=== PATIENT | male | born 1950 | race Caucasian/White ===

== ENCOUNTER 2017-06-20 05:30 | Day surgery (SDC) | payer MEDICAID ==
[~2017-06-20] VITALS: Ht 175.3 cm; Wt 92.5 kg
[2017-06-20 06:35] LABS: CALCIUM 8.5 mg/dL (8.4-11.0); CREATININE 0.74 mg/dL (0.55-1.30); POTASSIUM 3.9 mmol/L (3.5-5.1)
[2017-06-20 06:40] LABS: ALBUMIN 3.4 g/dL (3.4-4.8); TOTAL BILIRUBIN 0.5 mg/dL (0.0-1.0)
[2017-06-20] MEDS ORDERED: CLINDAMYCIN 600 mg/50mL D5W 50 ML IV ONE (07:00)
[2017-06-20] MEDS ORDERED: MORPHINE 4 MG/ML INJ. SYRINGE IVP PRN (11:30)
[2017-06-20] MEDS ORDERED: fentaNYL CITRATE/PF 100 MCG/2 ML AMP IVP PRN (11:30)
[2017-06-20] MEDS ORDERED: MEPERIDINE HCL/PF 25 MG/ML DISP.SYRIN IVP PRN (11:30)
[2017-06-20] MEDS ORDERED: NALOXONE HCL 0.4 MG/ML AMP (NARCAN) IVP ONE (11:30)
[2017-06-20] MEDS ORDERED: MIDAZOLAM HCL 5 MG/5 ML VIAL IVP PRN (11:30)
[2017-06-20] MEDS ORDERED: ONDANSETRON HCL 4 MG/2 ML VIAL IVP ONE ×2 (11:30→11:53)
[2017-06-20] MEDS ORDERED: MIDAZOLAM HCL 5 MG/ML VIAL (VERSED) IV ONE (11:53)
[2017-06-20] MEDS ORDERED: MEPERIDINE HCL/PF 100 MG/ML AMP IM ONE (11:53)
[2017-06-20] MEDS ORDERED: LIDOCAINE/EPI 1% 1:100000 20 ML VIAL INJ ONE (11:53)
[2017-06-20] MEDS ORDERED: SEVOFLURANE 15 MIN GAS INH ONE (11:53)
[2017-06-20] MEDS ORDERED: DEXAMETHASONE SOD PHOSPHATE 4 MG/ML VIAL IVP ONE (11:53)
[2017-06-20] MEDS ORDERED: fentaNYL CITRATE 250 MCG/5 ML AMP IV ONE (11:53)
[2017-06-20] MEDS ORDERED: NS IRRIG SOLN 1000 ML IR ONE (11:53)
[2017-06-20] MEDS ORDERED: ePHEDrine sulfate 50 MG/ML VIAL IVP ONE (11:53)
[2017-06-20] MEDS ORDERED: ROCURONIUM BROMIDE 10 MG/ML (ZEMURON) IV ONE (11:53)
[2017-06-20] MEDS ORDERED: LIDOCAINE 1% 10 MG/ML, 20 ML MDV INJ ONE (11:53)
[2017-06-20] MEDS ORDERED: LR 1,000 ML IV.SOLN IV ONE (11:53)
[2017-06-20] MEDS ORDERED: PROPOFOL 200MG/ 20ML VIAL (DIPRIVAN) IV ONE (11:53)
[2017-06-20] MEDS ORDERED: NS 250 ML BAG IV ONE (11:53)
[2017-06-20] MEDS ORDERED: BACITRACIN ZINC 15 GM TOPICAL OINTMENT TP ONE (11:53)
[2017-06-20] MEDS ORDERED: OXYMETAZOLINE HCL 0.05% NASAL SPRAY NS ONE (11:53)
[2017-06-20] MEDS ORDERED: SUCCINYLCHOLINE CHLORIDE 20 MG/ML(QUELICIN) IVP ONE (11:53)
[2017-06-20] MEDS ORDERED: INSULIN REGULAR, HUMAN 100 UNITS/ML, 10 ML VIAL SUBCUT ONE (12:00)
[2017-06-20] MEDS ORDERED: HYDROcodone/ACETAMIN 5-325 MG TAB (NORCO/ VICODIN) PO PRN (12:15)
[2017-06-20] MEDS ORDERED: ONDANSETRON 4 MG ODT TAB PO PRN (12:15)
[2017-06-20] MEDS ORDERED: ACETAMINOPHEN 500 MG TABLET PO PRN (12:15)
[2017-06-20] MEDS ORDERED: ONDANSETRON HCL 4 MG/2 ML VIAL IVP PRN (12:15)
[2017-06-20] MEDS ORDERED: HYDROcodone/ACETAMIN 5-325 MG TAB (NORCO/ VICODIN) PO ONE (13:16)
[2017-06-20] MEDS ORDERED: HYDROcodone/ACETAMIN 5-325 MG TAB (NORCO/ VICODIN) ONE (13:18)
[2017-06-20 13:58] VITALS: BP_SYST 148
== END 2017-06-20 14:45 | disposition home or self-care (01) ==
LOC: SDS 05:30 → SMU 05:30 → EDSEX 07:30 → SDS 14:45
PROVIDERS: ATTEND Otolaryngology
DX: J34.2 Deviated nasal septum (principal); J32.9 Chronic sinusitis, unspecified; J33.0 Polyp of nasal cavity; J34.3 Hypertrophy of nasal turbinates; Z88.8 Allergy status to other drugs, medicaments and biological substances; Z98.890 Other specified postprocedural states; Z85.038 Personal history of other malignant neoplasm of large intestine; Z86.73 Personal history of transient ischemic attack (TIA), and cerebral infarction without residual deficits; E78.5 Hyperlipidemia, unspecified; Z83.3 Family history of diabetes mellitus; Z80.9 Family history of malignant neoplasm, unspecified; I10 Essential (primary) hypertension; E66.9 Obesity, unspecified; K21.9 Gastro-esophageal reflux disease without esophagitis; E11.40 Type 2 diabetes mellitus with diabetic neuropathy, unspecified; J44.9 Chronic obstructive pulmonary disease, unspecified; Z87.891 Personal history of nicotine dependence; M19.90 Unspecified osteoarthritis, unspecified site
CPT/HCPCS: 36415; 71045; 80053; 82948; 82962; 88305; C1726; J0330; J1100; J1815; J2001; J2175; J2250; J2405; J2704; J3010; J3490; J7050; J7120

== ENCOUNTER 2020-10-05 10:48 | Outpatient (CLI) | payer OTHER | END 2020-10-05 20:22 | disposition home or self-care (01) | LOC: SNM 10:48 | PROVIDERS: ATTEND Family Medicine | DX: R10.9 Unspecified abdominal pain (principal); Z87.898 Personal history of other specified conditions | CPT/HCPCS: 78226; A9537 ==